=== PATIENT | male | born 1980 | race Caucasian/White ===

== ENCOUNTER 2016-11-15 09:24 | Inpatient (IN) | payer OTHER ==
[~2016-11-15] VITALS: Ht 193 cm; Wt 117.9 kg
--- NOTE | ~2016-11-15 | TN ---
Unit #: [id number] #: [id number] Patient: SHAKA HOLBROOK [id number] [facility] [address] [place] [address] [id number] MR#: [id number] NAME: SHAKA HOLBROOK ROOM: P173 Age: 35 Sex: M Admission Date: 11/15/2016 : 1980 Discharge Date: 11/16/2016 Attending Physician: Nitish Miguel M.D. Primary Care Physician: Winston Doctor Not In System LOC TRANSFER NOTE TRANSFER NOTE Mr. Holbrook is a 35-year-old male, who is a resident of [place], [place], and was brought to the hospital by his . CHIEF COMPLAINT "I have a lot of anxiety and withdrawal symptoms." HISTORY OF PRESENT ILLNESS Mr. Holbrook is a 35-year-old male, who came to the hospital for substance abuse issues stating that he came in for evaluation two days ago and they recommended that he start the intensive outpatient program that his symptoms are getting worse and had a COWS of 16 indicating significant withdrawal symptoms, also he stated "I have a lot of anxiety, stress, chills, body aches, loose stool, I cannot eat and sleep, I have severe depression, and I was diagnosed with PTSD in the past, not taking any medications right now. He requested detox from opioids, however, he denies any suicidal ideations, intent, or plan and also denies any history of suicide in the past. SUBSTANCE ABUSE HISTORY The patient reports history of cannabis and opioid abuse, and reports opioids, particularly IV heroin to be his drug of choice stating that he has been using half a gram of IV heroin a day. PAST PSYCHIATRIC HISTORY The patient has a history of chemical dependency rehab treatment at [facility] in the past. Review of the medical records indicate that currently he is not active in any treatment program, is not seeing a psychiatrist, not taking any psychotropic medications. PAST MEDICAL HISTORY The patient's medical history is insignificant. ALLERGIES No known medication allergies. PERSONAL AND SOCIAL HISTORY A 35-year-old male, who reports that he is and lives at home with his and has fairly decent social support system. MENTAL STATUS EXAMINATION Young male, who was casually dressed with a fair personal hygiene, appears to be in no acute distress or discomfort. He was awake and alert on Unit #: [id number] #: [id number] Patient: SHAKA HOLBROOK interaction with intact orientation to time, place, and person. His mood was anxious and depressed with a congruent affect. His speech was slow and restricted in content. His thought processes were disorganized with some looseness of associations and flight of ideas. He denies any suicidal or homicidal ideations and also denies any auditory or visual hallucinations. His insight and judgment remain significantly impaired. DIAGNOSTIC IMPRESSION Psychiatric: Opioid dependence, moderate, and acute withdrawal opioid induced mood disorder. Medical: None. Stressors: Moderate psychosocial stressors. TREATMENT PLAN 1. The patient has presented with history of substance abuse and mood disorder, and has been decompensating and will need inpatient hospitalization for detoxification, safety, and stabilization. We will start him on detox protocol. We will closely monitor for any worsening withdrawal symptoms. 2. Supportive therapy was provided to the patient. 3. Safe, structured, and nourishing environment will be provided. ESTIMATED LENGTH OF STAY 4 to 5 days. ABILITY TO HELP SELF Limited. WILLINGNESS TO HELP SELF The patient appears to be willing to help self. STRENGTHS 1. Communicative. 2. Cooperative. PROBLEMS 1. Chronic dysphoric symptoms. 2. Poor social support system. DISCHARGE CRITERIA This will be contingent upon the patient's ability to show resolution of his depression and his ability to show resolution of his detox symptoms. Dictated by... Nitish Miguel M.D. GLENROY/shahriar TD: 11/17/2016 03:42 JOB #: [id number] Unit #: [id number] #: [id number] Patient: SHAKA HOLBROOK LOC TRANSFER NOTE Page 1 of 1 X Nitish Miguel MD X LOC TRANSFER NOTE
--- NOTE | ~2016-11-15 | HP ---
Unit #: [id number] #: [id number] Patient: JONATHON HOLBROOK [id number] [place] [address] [id number] MR#: [id number] NAME: JONATHON HOLBROOK ROOM: P173 Age: 35 Sex: M Admission Date: 11/15/2016 : 1980 Attending Physician: Nitish Miguel M.D. Admitting Physician: Nitish Miguel M.D. Primary Care Physician: Generic Doctor Not In System HISTORY AND PHYSICAL HISTORY OF PRESENT ILLNESS Jonathon is a 35-year-old male admitted to [facility] because of his drug use. He shoots heroin. PAST MEDICAL HISTORY Long history of opioid abuse to include IV heroin. PAST SURGICAL HISTORY Right knee. ALLERGIES Shellfish. SOCIAL HISTORY He does not smoke. Drinks alcohol rarely. Admits to a history of illicit substance abuse to include IV heroin. FAMILY HISTORY Medically noncontributory. REVIEW OF SYSTEMS CONSTITUTIONAL: No fever or chills. HEENT: Denies any sore throat, ear pain or runny nose. CARDIOVASCULAR: Denies chest pain, irregular heart rhythm or palpitations. CHEST: Denies shortness of breath or cough. No hemoptysis. GASTROINTESTINAL: Denies nausea, vomiting, diarrhea or chronic constipation. ENDOCRINE: Denies history of increased thirst or urination. No recent significant weight loss or gain. GENITOURINARY: Denies dysuria, frequency, or hematuria. SKIN: Denies any rashes. HEMATOLOGIC: Denies history of increased bleeding or bruising. MUSCULOSKELETAL: Denies any hot, swollen joints. No generalized muscle pain. NEUROLOGIC: Denies problems with vision or speech. No frequent, severe headaches. No numbness, tingling or weakness in any extremities. Denies loss of bladder or bowel control. CURRENT MEDICATIONS Detox protocol. PHYSICAL EXAMINATION GENERAL: Alert, well-nourished, in no apparent distress. Unit #: [id number] #: [id number] Patient: JONATHON HOLBROOK VITAL SIGNS: Blood pressure 132/96, heart rate 80, respirations 16, temperature 98.6. WEIGHT: 260. HEIGHT: 6 feet 4 inches. SKIN: Warm and dry without rash or lesion. HEENT: Normocephalic. TMs not viewed. Oral and nasal passages clear. Conjunctivae clear. PERRLA. EOMs intact. NECK: Supple without lymphadenopathy or thyromegaly. HEART: Regular rate and rhythm without murmur. LUNGS: Clear. ABDOMEN: Soft, nontender. : Not done. EXTREMITIES: No evidence of cyanosis, clubbing or edema. Moves all without focal deficit. NEUROLOGICAL: Grossly within normal limits. Cranial Nerves: II: Visual radford are intact. III, IV AND : Extraocular movements are intact. Pupils are equal, round and reactive to light. V: Facial sensation is grossly normal. VII: Facial movements and expression are normal. VIII: Auditory acuity grossly intact. IX, X: Uvula is midline. Phonation is normal. XI: Patient shrugs shoulders and turns head normally. XII: Tongue protrudes in the midline. Sensory and Motor Function: Sensory and motor sensation is grossly normal. Motor: moves all extremities well. Coordination: Gait is normal. Deep Tendon Reflexes: Intact. IMPRESSION Psychiatric admission. RECOMMENDATIONS PSYCHIATRIC: Per psychiatrist. MEDICAL: See no contraindication to participate in facility's activities. MEDICAL PROGNOSIS Good. MEDICAL CONDITION Stable. Dictated by... Smitha Sanders P.A.-C. for Mala Davis/berhane TD: 11/16/2016 18:36 JOB #: [id number] Unit #: [id number] #: [id number] Patient: АНДРЕЙ HOLBROOKDAD HISTORY AND PHYSICAL Page 1 of 1 X Smitha Sanders HISTORY AND PHYSICAL
== END 2016-11-16 11:04 | disposition home or self-care (01) | DRG 897 ==
LOC: P1E 09:24
PROC: HZ2ZZZZ Detoxification Services for Substance Abuse Treatment (ICD-10-PCS; principal; 2016-11-16)
DX: F11.23 Opioid dependence with withdrawal (principal); F11.24 Opioid dependence with opioid-induced mood disorder; Z91.013 Allergy to seafood